=== PATIENT | female | born 1935 | race Caucasian/White ===

== ENCOUNTER 2016-07-16 13:40 | Emergency (ER) | payer MEDICARE, BC ==
--- NOTE | ~2016-07-16 | US85 ---
[facility] A Service [facility] RADIOLOGY TEXT RESULTS PATIENT: DARON DE LOS SANTOS LOCATION: [facility] : 31 UNIT #: [id number] AGE: [address]: Gabriel Duran MD SEX: F ORDER DR: [id number] [facility] [address] [place], [place] [address] [id number] E MR#: [id number] Acc #: [id number] NAME: DARON DE LOS SANTOS : 1935 SEX: F STUDY DATE/TIME: 07/16/2016 17:27 UNIT: [facility] ROOM: STUDY DESCRIPTION: [facility] [facility] [employer] Stdy Attending Physician: Gabriel Duran M.D. Ordering Physician: [id number] Kenji Duran Primary Care Physician: Issac Gonzalez Jr., M.D. MEDICAL IMAGING REPORT This report is preliminary unless electronic signature is present COULD NOT FIND ORDER EXAM Left lower extremity venous ultrasound. HISTORY Left lower extremity pain for 1 week. TECHNIQUE Venous ultrasound examination of the left lower extremity was performed using grayscale, spectral Doppler and color flow Doppler imaging. FINDINGS The examination is negative. There is no evidence of left lower extremity deep venous thrombus from the groin to the lower calf. Visualized greater saphenous vein is also patent. IMPRESSION Negative examination. No evidence of left lower extremity DVT. Dictated by... Dale Gee M.D. THIS IS AN ELECTRONICALLY VERIFIED REPORT Dale Gee M.D. at 07/17/2016 10:22 PM CARRIE/huma TD: 07/16/2016 18:43 JOB #: [id number] [facility] A Service [facility] RADIOLOGY TEXT RESULTS PATIENT: DARON DE LOS SANTOS LOCATION: [facility] : 33 UNIT #: [id number] AGE: [address]: Gabriel Duran MD SEX: F ORDER DR: MEDICAL IMAGING REPORT Page 1 of 1 COPY
[~2016-07-16 13:40] MED LIST: ACETAMINOPHEN PO; AMIODARONE PO; ASPIRIN PO; COUMADIN PO; LORTAB 5/500 TA1 TA1 PO; LOVENOX SUBQ; NEXIUM PO; NICOTINE T1 PATCH .2 TOP; NORCO 5/325 TAB1 TAB PO; NORVASC PO; PREDNISONE PO; QVAR7.3 GM INH; SPIRIVA18 MCG INH; TEMAZEPAM PO; TOPROL XL PO; [UNRECOGNIZED DRUG - OTHER] INH; [UNRECOGNIZED DRUG - REMARK]
[2016-07-16 16:49] LABS: BASOPHIL# 0.1 X10e3 (0-0.3); EOSINOPHIL# 0.2 X10e3 (0-0.7); EOSINOPHIL% 2.5 % (0.0-7.0); HEMATOCRIT 41.1 % (35.0-45.0); HEMOGLOBIN 13.4 gm/dL (12.0-16.0); LYMPHOCYTE# 1.4 X10e3 (1.0-3.5); LYMPHOCYTE% 20.3 % (17.0-45.0); MEAN CELL VOLUME 87.9 FL (83-96); MEAN CORPUSCULAR HEMOGLOBIN 28.7 PG (28-34); MEAN CORPUSCULAR HGB CONC 32.6 g/dL (30-36); MEAN PLATELET VOLUME 8.8 FL (6.5-11.5); MONOCYTE# 0.7 X10e3 (0-1.0); MONOCYTE% 10.5 % (3.0-12.0); NEUTROPHIL# 4.4 X10e3 (1.5-7.1); NEUTROPHIL% 65.7 % (40-75); PLATELET COUNT 212 X10e3 (140-420); RED BLOOD COUNT 4.68 X10e (3.90-5.30); RED CELL DISTRIBUTION WIDTH 15.7 % (11.0-15.5); WHITE BLOOD COUNT 6.8 X10e3 (4.0-10.5)
[2016-07-16 16:59] LABS: DIFF IND NO
[2016-07-16 17:08] LABS: INR 2.7; PARTIAL THROMBOPLASTIN TIME 38.7 SECONDS (23.5-31.3); PROTHROMBIN TIME (PATIENT) 29.2 SECONDS (9.6-11.5)
[2016-07-16 17:16] LABS: BUN/CREATININE RATIO 15.55; CALCIUM SERUM 10.2 mg/dL (8.4-10.2); CREATININE SERUM 1.8 mg/dL (0.6-1.4); GLOM FILT RATE Estimated 25.6 mL/min (>60); POTASSIUM 4.2 mmol/L (3.5-5.1)
== END 2016-07-16 18:20 | disposition home or self-care (01) ==
LOC: CED 13:40
PROVIDERS: Emergency Medicine
DX: M79.652 Pain in left thigh (principal); I10 Essential (primary) hypertension; Z79.01 Long term (current) use of anticoagulants
CPT/HCPCS: 36415; 80048; 85025; 85610; 85730; 93971; 99284

== ENCOUNTER 2016-09-19 11:37 | Emergency (ER) | payer MEDICARE, BC ==
[~2016-09-19] VITALS: Ht 154.9 cm; Wt 59.9 kg
--- NOTE | ~2016-09-19 | CR229 ---
[facility] A Service of [facility] RADIOLOGY TEXT RESULTS PATIENT: DARON DE LOS SANTOS LOCATION: [facility] : 33 UNIT #: [id number] AGE: [address]: Raman Fung MD SEX: F ORDER DR: [id number] [facility] [address] [place], [place] [address] [id number] E MR#: [id number] Acc #: [id number] NAME: DARON DE LOS SANTOS : 1935 SEX: F STUDY DATE/TIME: 09/19/2016 14:45 UNIT: [facility] ROOM: STUDY DESCRIPTION: CR Shoulder Min 2 View Lt Attending Physician: Hansel Fung M.D. Ordering Physician: Ed Robby Velasco M.D. Primary Care Physician: Issac Gonzalez Jr., M.D. MEDICAL IMAGING REPORT This report is preliminary unless electronic signature is present EXAM Left shoulder series, 09/19/2016. HISTORY Pain. No known injury. Left shoulder pain 1-day duration. FINDINGS AP internal/external rotation views of the left shoulder are presented. No traumatic fracture or malalignment. Acromioclavicular and glenohumeral joint relationships appear normal. The periarticular soft tissues show no acute appearing abnormality. There is clothing artifact overlying the soft tissues. The visualized ribs are intact. Visualized pulmonary parenchyma shows calcified granulomata left lung apex. Dictated by... Gutierrez Perry M.D. THIS IS AN ELECTRONICALLY VERIFIED REPORT Gutierrez Perry M.D. at 09/20/2016 6:52 PM Liliana TD: 09/20/2016 08:05 JOB #: [id number] MEDICAL IMAGING REPORT Page 1 of 1 COPY
[2016-09-19 14:16] LABS: BASOPHIL# 0.1 X10e3 (0-0.3); BASOPHIL% 0.8 % (0-2.5); EOSINOPHIL# 0.2 X10e3 (0-0.7); EOSINOPHIL% 2.3 % (0.0-7.0); HEMATOCRIT 37.8 % (35.0-45.0); HEMOGLOBIN 12.5 gm/dL (12.0-16.0); LYMPHOCYTE# 1.1 X10e3 (1.0-3.5); LYMPHOCYTE% 14.8 % (17.0-45.0); MEAN CORPUSCULAR HEMOGLOBIN 28.5 PG (28-34); MEAN CORPUSCULAR HGB CONC 33.2 g/dL (30-36); MEAN PLATELET VOLUME 8.6 FL (6.5-11.5); MONOCYTE# 0.8 X10e3 (0-1.0); MONOCYTE% 10.5 % (3.0-12.0); NEUTROPHIL# 5.5 X10e3 (1.5-7.1); NEUTROPHIL% 71.6 % (40-75); PLATELET COUNT 238 X10e3 (140-420); RED BLOOD COUNT 4.39 X10e (3.90-5.30); RED CELL DISTRIBUTION WIDTH 15.9 % (11.0-15.5); WHITE BLOOD COUNT 7.7 X10e3 (4.0-10.5)
[2016-09-19 14:17] LABS: DIFF IND NO
[2016-09-19 14:36] LABS: INR 2.3; PARTIAL THROMBOPLASTIN TIME 40.1 SECONDS (23.5-31.3); PROTHROMBIN TIME (PATIENT) 24.5 SECONDS (10.0-11.7)
[2016-09-19 14:39] LABS: BUN/CREATININE RATIO 14.28; CALCIUM SERUM 8.8 mg/dL (8.4-10.2); CREATININE SERUM 2.1 mg/dL (0.6-1.4); GLOM FILT RATE Estimated 21.2 mL/min (>60); POTASSIUM 4.6 mmol/L (3.5-5.1)
== END 2016-09-19 17:20 | disposition home or self-care (01) ==
LOC: CED 11:37
PROVIDERS: Emergency Medicine
DX: M17.0 Bilateral primary osteoarthritis of knee (principal); M19.012 Primary osteoarthritis, left shoulder; I48.91 Unspecified atrial fibrillation; N18.9 Chronic kidney disease, unspecified; Z90.710 Acquired absence of both cervix and uterus
CPT/HCPCS: 73030; 80048; 85025; 85610; 85730; 99284